=== PATIENT | female | born 1975 | race American Indian/Alaskan Native ===

== ENCOUNTER 2018-07-23 12:18 | Emergency (ER) | payer MEDICARE, MEDICAID ==
[2018-07-23 12:18] VITALS: BMI 38.4
[2018-07-23] MEDS ORDERED: Sodium Chloride 0.9% 1,000 ML IV STA (13:07)
--- NOTE | 2018-07-23 13:11 | ED PDOC ---
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 with right shoulder pain. States she sneezes and noted her right shoulder to get dislocate. Has had similar many times in the past. No numbness, tingles, weakness. No chest pain, dyspnea. No po except her med in the morning. Has had multiple surgeries for the same shoulder for dislocations. States only thing left is to have it fuse and refuses to do that. Past Medical History Reviewed: Historical Data, Nursing Documentation, Vital Signs Vital Signs: Last Vital Signs Temp 98.7 F 07/23/18 12:21 Pulse 92 H 07/23/18 12:21 Resp 18 07/23/18 12:21 BP 136/90 07/23/18 12:21 Pulse Ox 100 07/23/18 12:21 - Medical History PMH: Anemia, Arthritis Denies: Depression, Chronic Kidney Disease Other PMH: shoulder dislocation - Surgical History Surgical History: Cholecystectomy - Family History Family History: States: Unknown Family Hx - Immunization History Hx Tetanus Toxoid Vaccination: No Hx Influenza Vaccination: Yes Hx Pneumococcal Vaccination: No - Home Medications Home Medications: Ambulatory Orders Medication Instructions Recorded oxyCODONE/Acetaminophen [Percocet 5 - 325 mg Q4 PRN 06/08/16 5/325 mg Tab] - Allergies Allergies/Adverse Reactions: Allergies Allergy/AdvReac Type Severity Reaction Status Date / Time morphine Allergy RASH Verified 04/25/17 02:41 Sulfa (Sulfonamide Allergy RASH Verified 04/25/17 02:41 Antibiotics) Review of Systems ROS Statement: Except As Marked, All Systems Reviewed And Found Negative Musculoskeletal: Positive for: Shoulder Pain Physical Exam - Reviewed Nursing Documentation Reviewed: Yes Vital Signs Reviewed: Yes - Physical Exam Appears: Positive for: Non-toxic, No Acute Distress Head Exam: Positive for: ATRAUMATIC, NORMAL INSPECTION, NORMOCEPHALIC Skin: Positive for: Normal Color, Warm, DRY Eye Exam: Positive for: EOMI, Normal appearance, PERRL ENT: Positive for: Nasal Congestion Neck: Positive for: Normal, Painless ROM, Supple Cardiovascular/Chest: Positive for: Regular Rate, Rhythm Respiratory: Positive for: CNT, Normal Breath Sounds Pulses-Radial (R): 2+ Gastrointestinal/Abdominal: Positive for: Normal Exam, Soft. Negative for: Tenderness Back: Positive for: Normal Inspection. Negative for: L CVA Tenderness, R CVA Tenderness Extremity: Positive for: Tenderness (R shoulder with limited ROM). Negative for: Calf Tenderness Neurologic/Psych: Positive for: Alert, Oriented - ECG O2 Sat by Pulse Oximetry: 100 - Radiology X-Ray: Interpreted by Me, Viewed By Me X-Ray Interpretation: No Acute Disease - Progress ED Course And Treament: 1312: Pt. states she is allergic to the sulfa in morphine but can take dilaudid with no issues. 1406: Stable. No acute fx. No dislocation. Similar to old. Fu with pcp. Chronic shoulder issues. Disposition - Clinical Impression Clinical Impression: Shoulder pain - Patient ED Disposition Is Patient to be Admitted: No Counseled Patient/Family Regarding: Studies Performed, Diagnosis, Need For Followup - Disposition Referrals: [facility] [place] [Outside] - 07/24/18 Disposition: Routine/Home Disposition Time: 14:07 Condition: STABLE Additional Instructions: Return if not better in 3 days. Instructions: Shoulder Pain (DC) Forms: [facility] ED School/Work Excuse
[2018-07-23 14:23] VITALS: BP 140/70; PULSE 70; RESP 20; TEMP 97.8; O2SAT 98
--- NOTE | 2018-07-23 15:09 | RAD ---
Date of service: 07/23/2018 PROCEDURE: Radiographs of the Right Shoulder HISTORY: shoulder pain COMPARISON: Comparison made with prior radiographs of the right shoulder dated 06/13/2016 FINDINGS: BONES: In situ right total shoulder replacement unchanged. There is satisfactory alignment. The no evidence of acute displaced fracture nor dislocation JOINTS: As above. SOFT TISSUES: Normal. OTHER FINDINGS: None. IMPRESSION: In situ right-sided shoulder replacement with satisfactory alignment unchanged. No evidence of acute displaced fracture
== END 2018-07-23 14:23 | disposition home or self-care (01) ==
LOC: H.ER 12:18
DX: M25.511 Pain in right shoulder (principal)
CPT/HCPCS: 73030; 81025; 96360; 99283; J1170; J7030